=== PATIENT | male | born 1960 | race African-American/Black ===

== ENCOUNTER 2020-07-18 19:20 | Inpatient (IN) | payer OTHER ==
[~2020-07-18] VITALS: Ht 185.4 cm; Wt 77.1 kg
[~2020-07-18 19:20] MED LIST: ASPI-1079 PO; ATOR10TA PO; METO25TA6 PO
[2020-07-18] MEDS ORDERED: IPRATROPIUM BROMIDE (0.02%) 0.5MG/2.5ML NEB HHN STA (19:25)
[2020-07-18] MEDS ORDERED: ALBUTEROL (0.083%) 2.5MG/3ML NEB HHN STA (19:25)
[2020-07-18] MEDS ORDERED: METHYLPREDNISOLONE SOD SUCC 125 MG/2 ML VIAL IV STA (19:25)
[2020-07-18] MEDS ORDERED: SODIUM CHLORIDE 0.9% 1,000 ML IV ONE (19:30)
[2020-07-18] MEDS ORDERED: MAGNESIUM 2 G PREMIX 50 ML IV ONE (19:30)
[2020-07-18 20:00] LABS: BASOPHILS % 0.6 % (0.0-2.0); EOSINOPHILS % 6.9 % (0.0-5.0); HEMATOCRIT. 51.1 % (42.0-52.0); HEMOGLOBIN. 16.8 g/dL (14.0-18.0); LYMPHOCYTES % 27.2 % (20.0-50.0); MEAN CORPUSCULAR HEMOGLOBIN 28.2 pg (28.0-32.0); MEAN PLATELET VOLUME 9.9 fl (7.4-10.4); MONOCYTES % 8.7 % (2.0-8.0); NEUTROPHILS % 56.6 % (40.0-76.0); PLATELET 193 x1000/uL (130-400); RED BLOOD CELL COUNT 5.94 mill/uL (4.7-6.1); RED CELL DISTRIBUTION WIDTH 14.5 % (11.6-14.6)
[2020-07-18 20:03] LABS: CHLORIDE 106 mEq/L (98-107)
[2020-07-18 20:53] LABS: CLARITY URINE CLEAR (CLEAR); COLOR URINE YELLOW (YELLOW); KETONES URINE NEGATIVE (NEGATIVE); LEUKOCYTE ESTERASE URINE NEGATIVE (NEGATIVE); NITRITE URINE NEGATIVE (NEGATIVE); OCCULT BLOOD URINE 1+ (NEGATIVE); PROTEIN URINE 4+ (NEGATIVE); SPECIFIC GRAVITY URINE 1.016 (1.005-1.030); UROBILINOGEN URINE 0.2 E.U./dL (0.2-1.0)
[2020-07-18 21:05] LABS: BG BASE EXCESS -2.4 mmol/L (-2.0-2.0); BG CARBOXYHEMOGLOBIN 0.3 % (0.5-1.5); BG DEOXYHEMOGLOBIN 0.3 % (0.0-5.0); BG FRACTION INSPIRED OXYGEN 100; BG HCO3 ACT 24.4 mmol/L (22.0-26.0); BG METHEMOGLOBIN 0.5 % (0.0-1.5); BG OXYGEN SATURATION 99.7 % (92.0-98.5); BG OXYHEMOGLOBIN 98.9 % (94.0-97.0); BG PCO2 49.4 mmHg (35.0-45.0); BG PH 7.311 (7.350-7.450); BG PO2 566.4 mmHg (75.0-100.0); BG SAMPLE SITE RIGHT RADIAL; BG TOTAL HEMOGLOBIN 15.7 g/dL (12.0-18.0); BG VENT MODE MASK - BIPAP
[2020-07-18 21:06] LABS: *AMPHETAMINES SCREEN URINE NEGATIVE (NEGATIVE); *BARBITURATES SCREEN URINE NEGATIVE (NEGATIVE); *BENZODIAZEPINES SCREEN URINE NEGATIVE (NEGATIVE); *COCAINE SCREEN URINE NEGATIVE (NEGATIVE); METHADONE URINE SCREEN NEGATIVE (NEGATIVE); OPIATES URINE SCREEN NEGATIVE (NEGATIVE)
[2020-07-18 21:07] LABS: CANNABINOID URINE SCREEN NEGATIVE (NEGATIVE); PHENCYCLIDINE URINE SCREEN NEGATIVE (NEGATIVE)
[2020-07-19] VITALS (16 sets, daily range): BP systolic 134–152; BP diastolic 87–98
[2020-07-19] MEDS ORDERED: AMLO2.5T45 MT (04:35)
[2020-07-19] MEDS ORDERED: ACETAMINOPHEN 325MG TABLET PO PRN (08:00)
[2020-07-19] MEDS ORDERED: DOCUSATE SODIUM 100MG CAPSULE PO PRN (08:00)
[2020-07-19] MEDS ORDERED: CLONIDINE 0.1MG TABLET PO PRN (08:00)
[2020-07-19] MEDS ORDERED: MAGNESIUM/ALUMINUM HYDROXIDE/SIMETHICONE 30ML UDC PO PRN (08:00)
[2020-07-19] MEDS ORDERED: IPRATROPIUM/ALBUTEROL 0.5-3(2.5)MG/3ML NEB HHN PRN (08:00)
[2020-07-19] MEDS ORDERED: MORPHINE SULFATE 2 MG/ML CPJ (NOT FOR IM USE) IV PRN (08:00)
[2020-07-19] MEDS ORDERED: LORAZEPAM 2MG/ML CPJ IV PRN (08:00)
[2020-07-19] MEDS ORDERED: ONDANSETRON HCL 4MG/2ML INJ IV PRN (08:00)
[2020-07-19] MEDS ORDERED: HYDRALAZINE 20MG/ML VIAL IV PRN (08:00)
[2020-07-19] MEDS ORDERED: HYDROCODONE/ACETAMINOPHEN 5/325MG TABLET PO PRN (08:00)
[2020-07-19] MEDS ORDERED: DIPHENHYDRAMINE 50MG/ML VIAL IV PRN (08:00)
[2020-07-19] MEDS ORDERED: GUAIFENESIN 200MG/10ML SUGAR FREE UDC PO PRN (08:00)
[2020-07-19] MEDS: ENOXAPARIN 40MG/0.4ML SYR SUBCUT SCH (09:53)
[2020-07-19] MEDS: METHYLPREDNISOLONE SOD SUCC 40 MG/ML VIAL IV SCH ×3 (09:53→21:26)
[2020-07-19] MEDS: SODIUM CHLORIDE 0.9% INJ 3ML FLUSH IVF SCH ×2 (14:46→21:26)
[2020-07-19 15:36] LABS: CREATINE KINASE MB FRACTION 10.3 ng/mL (0.5-3.6)
[2020-07-19] MEDS ORDERED: FLUT1DIS3 INH (18:08)
[2020-07-19] MEDS ORDERED: MONTELUKAST SODIUM 10MG TABLET PO SCH (18:30)
[2020-07-19] MEDS: LORATADINE 10MG TABLET PO SCH (18:37)
[2020-07-19] MEDS: IPRATROPIUM/ALBUTEROL 0.5-3(2.5)MG/3ML NEB HHN SCH (20:51)
[2020-07-19] MEDS: FAMOTIDINE 20MG TABLET PO SCH (21:26)
[2020-07-20] VITALS (8 sets, daily range): BP systolic 132–146; BP diastolic 81–96
[2020-07-20] MEDS: IPRATROPIUM/ALBUTEROL 0.5-3(2.5)MG/3ML NEB HHN SCH ×5 (00:53→12:18)
[2020-07-20] MEDS: METHYLPREDNISOLONE SOD SUCC 40 MG/ML VIAL IV SCH ×3 (02:57→14:16)
[2020-07-20] MEDS: SODIUM CHLORIDE 0.9% INJ 3ML FLUSH IVF SCH (05:58)
[2020-07-20 06:49] LABS: HEMATOCRIT. 45.1 % (42.0-52.0); HEMOGLOBIN. 14.7 g/dL (14.0-18.0); MEAN CORPUSCULAR HEMOGLOBIN 28.1 pg (28.0-32.0); MEAN PLATELET VOLUME 10.3 fl (7.4-10.4); PLATELET 166 x1000/uL (130-400); RED BLOOD CELL COUNT 5.25 mill/uL (4.7-6.1); RED CELL DISTRIBUTION WIDTH 14.6 % (11.6-14.6)
[2020-07-20 06:58] LABS: CHLORIDE 108 mEq/L (98-107)
[2020-07-20 07:07] LABS: CREATINE KINASE 188 IU/L (39-308)
[2020-07-20 07:10] LABS: CREATINE KINASE MB FRACTION 5.4 ng/mL (0.5-3.6)
[2020-07-20] MEDS: ENOXAPARIN 40MG/0.4ML SYR SUBCUT SCH (08:14)
[2020-07-20] MEDS: LORATADINE 10MG TABLET PO SCH (08:15)
[2020-07-20] MEDS: FAMOTIDINE 20MG TABLET PO SCH (08:15)
[2020-07-20 14:23] LABS: PLATELET ESTIMATE NORMAL
== END 2020-07-20 15:00 | disposition home or self-care (01) | DRG 189 ==
LOC: ER 19:20 → 3WST 07-19 00:13 → ENRESERV 07-19 02:19 → 3WST 07-19 03:55
PROVIDERS: ADMIT Internal Medicine; ATTEND Internal Medicine
PROC: 5A09357 Assistance with Respiratory Ventilation, Less than 24 Consecutive Hours, Continuous Positive Airway Pressure (ICD-10-PCS; principal; 2020-07-18)
DX: J96.01 Acute respiratory failure with hypoxia (principal); J45.901 Unspecified asthma with (acute) exacerbation; J96.02 Acute respiratory failure with hypercapnia; I10 Essential (primary) hypertension; D72.10 Eosinophilia, unspecified; R80.9 Proteinuria, unspecified
CPT/HCPCS: 36415; 36600; 71045; 80053; 80305; 81003; 82375; 82550; 82553; 82805; 83880; 84443; 84484; 85025; 85379; 93005; 94640; 94660; 99291; J1650; J2920; J2930; J3475; J7030

== ENCOUNTER 2024-07-12 08:47 | Emergency (ER) | payer SELFPAY ==
[~2024-07-12] VITALS: Ht 180.3 cm; Wt 71.0 kg
[~2024-07-12 08:47] MED LIST changes: +AMLO2.5T45 MT; +FLUT1DIS3 INH
[2024-07-12 09:01] VITALS: O2SAT 97
[2024-07-12] MEDS: KETOROLAC 30MG/ML VIAL IM ONE (10:20)
[2024-07-12 10:51] LABS: CLARITY URINE CLEAR (CLEAR); COLOR URINE YELLOW (YELLOW); GLUCOSE URINE NEGATIVE (NEGATIVE); KETONES URINE NEGATIVE (NEGATIVE); LEUKOCYTE ESTERASE URINE NEGATIVE (NEGATIVE); NITRITE URINE NEGATIVE (NEGATIVE); OCCULT BLOOD URINE NEGATIVE (NEGATIVE); PROTEIN URINE NEGATIVE (NEGATIVE); SPECIFIC GRAVITY URINE 1.009 (1.005-1.030); UROBILINOGEN URINE 0.2 E.U./dL (0.2-1.0)
[2024-07-12] MEDS ORDERED: IBUP-2029 MT (10:54)
[2024-07-12] MEDS ORDERED: CYCL10TA21 MT (10:54)
[2024-07-12 10:56] VITALS: BP 148/77; PULSE 83; RESP 16; TEMP 36.8; O2SAT 97
[2024-07-12] MEDS ORDERED: POLY17PO3 MT (11:12)
== END 2024-07-12 11:07 | disposition home or self-care (01) ==
LOC: ER 08:47
DX: M54.50 Low back pain, unspecified (principal); J45.909 Unspecified asthma, uncomplicated; I10 Essential (primary) hypertension; Z79.899 Other long term (current) drug therapy; Z98.890 Other specified postprocedural states; Z79.51 Long term (current) use of inhaled steroids; Z79.82 Long term (current) use of aspirin
CPT/HCPCS: 99284; 81003; 96372; J1885

== ENCOUNTER 2024-07-15 17:35 | Emergency (ER) | payer SELFPAY ==
[~2024-07-15] VITALS: Ht 180.3 cm; Wt 68.0 kg
[~2024-07-15 17:35] MED LIST changes: +CYCL10TA21 MT; +IBUP-2029 MT; +POLY17PO3 MT
[2024-07-15] MEDS ORDERED: VALA10002 MT (18:52)
[2024-07-15 18:55] VITALS: O2SAT 99
[2024-07-15 18:58] VITALS: BP 181/107; PULSE 79; RESP 16; TEMP 36.8; O2SAT 99
== END 2024-07-15 19:44 | disposition home or self-care (01) ==
LOC: ER 17:35
DX: B02.9 Zoster without complications (principal); I10 Essential (primary) hypertension; J45.909 Unspecified asthma, uncomplicated; Z79.51 Long term (current) use of inhaled steroids; Z79.624 Long term (current) use of inhibitors of nucleotide synthesis; Z79.82 Long term (current) use of aspirin; Z79.899 Other long term (current) drug therapy
CPT/HCPCS: 99283

== ENCOUNTER 2024-07-21 14:41 | Emergency (ER) | payer SELFPAY ==
[~2024-07-21] VITALS: Ht 180.3 cm; Wt 70.0 kg
[~2024-07-21 14:41] MED LIST changes: +VALA10002 MT
[2024-07-21 15:03] VITALS: BP 142/94; PULSE 86; RESP 18; TEMP 36.7; O2SAT 98
[2024-07-21] MEDS ORDERED: GABA-1180 MT (18:13)
[2024-07-21] MEDS ORDERED: VALA10002 MT (18:13)
== END 2024-07-21 19:06 | disposition home or self-care (01) ==
LOC: ER 14:41
DX: B02.9 Zoster without complications (principal); I10 Essential (primary) hypertension; J45.909 Unspecified asthma, uncomplicated; Z79.51 Long term (current) use of inhaled steroids; Z79.624 Long term (current) use of inhibitors of nucleotide synthesis; Z79.82 Long term (current) use of aspirin; Z79.899 Other long term (current) drug therapy
CPT/HCPCS: 99283

== ENCOUNTER 2024-08-13 09:02 | Emergency (ER) | payer OTHER ==
[~2024-08-13] VITALS: Ht 180.3 cm; Wt 72.6 kg
[~2024-08-13 09:02] MED LIST changes: +GABA-1180 MT
[2024-08-13 09:04] VITALS: O2SAT 100
[2024-08-13] MEDS ORDERED: BUDE6HFA INH (09:25)
[2024-08-13] MEDS ORDERED: LIDO-116 TOP (09:25)
[2024-08-13] MEDS ORDERED: KETO10TA2 MT (09:25)
[2024-08-13] MEDS ORDERED: AMLO10TA80 MT (09:25)
[2024-08-13] MEDS: KETOROLAC 30MG/ML VIAL IM ONE (09:31)
[2024-08-13 09:33] VITALS: BP 148/90; PULSE 80; RESP 16; TEMP 36.7; O2SAT 100
== END 2024-08-13 09:33 | disposition home or self-care (01) ==
LOC: ER 09:02
DX: B02.29 Other postherpetic nervous system involvement (principal); I10 Essential (primary) hypertension; J45.909 Unspecified asthma, uncomplicated; Z79.82 Long term (current) use of aspirin; Z79.624 Long term (current) use of inhibitors of nucleotide synthesis; Z79.899 Other long term (current) drug therapy; Z79.51 Long term (current) use of inhaled steroids; Z98.890 Other specified postprocedural states
CPT/HCPCS: 96372; 99283; J1885; Z7610

== ENCOUNTER 2024-08-21 14:14 | Emergency (ER) | payer OTHER ==
[~2024-08-21] VITALS: Ht 180.3 cm; Wt 70.0 kg
[~2024-08-21 14:14] MED LIST changes: +AMLO10TA80 MT; +BUDE6HFA INH; +KETO10TA2 MT; +LIDO-116 TOP
[2024-08-21 14:27] VITALS: O2SAT 97
[2024-08-21 15:41] LABS: BASOPHILS % 0.7 % (0.0-2.0); EOSINOPHILS % 2.7 % (0.0-5.0); HEMATOCRIT. 43.7 % (42.0-52.0); HEMOGLOBIN. 14.4 g/dL (14.0-18.0); LYMPHOCYTES % 32.8 % (20.0-50.0); MEAN CORPUSCULAR HEMOGLOBIN 27.8 pg (28.0-32.0); MEAN CORPUSCULAR VOLUME 84.5 fL (80.0-94.0); MEAN PLATELET VOLUME 9.7 fl (7.4-10.4); MONOCYTES % 11.2 % (2.0-8.0); NEUTROPHILS % 52.6 % (40.0-76.0); PLATELET 160 x1000/uL (130-400); RED BLOOD CELL COUNT 5.18 mill/uL (4.7-6.1); RED CELL DISTRIBUTION WIDTH 14.3 % (11.6-14.6); WHITE BLOOD COUNT 3.3 x1000/uL (4.5-11.0)
[2024-08-21 15:52] LABS: CLARITY URINE CLEAR (CLEAR); COLOR URINE YELLOW (YELLOW); GLUCOSE URINE NEGATIVE (NEGATIVE); KETONES URINE NEGATIVE (NEGATIVE); LEUKOCYTE ESTERASE URINE TRACE (NEGATIVE); NITRITE URINE NEGATIVE (NEGATIVE); OCCULT BLOOD URINE NEGATIVE (NEGATIVE); PH URINE 6.5 (4.5-8.0); PROTEIN URINE NEGATIVE (NEGATIVE)
[2024-08-21 15:55] LABS: CHLORIDE 105 mEq/L (98-107)
[2024-08-21 15:56] LABS: CARBON DIOXIDE 29 mEq/L (21-32); POTASSIUM 3.1 mEq/L (3.5-5.1); SODIUM 141 mEq/L (136-145)
[2024-08-21 15:57] LABS: CALCIUM 9.8 mg/dL (8.7-10.4)
[2024-08-21 16:01] LABS: TROPONIN I HIGH SENSITIVITY 5 ng/L (3.0-53)
[2024-08-21 16:02] LABS: GLUCOSE 120 mg/dL (70-105); UREA NITROGEN BLOOD 12 mg/dL (9-23)
[2024-08-21 16:20] LABS: BACTERIA URINE NONE SEEN; RBC URINE NONE SEEN /hpf (0-2); SQUAMOUS EPITHELIAL CELL URINE NONE SEEN /lpf (RARE/1+); YEAST URINE NONE SEEN
[2024-08-21 16:50] VITALS: BP 151/89; PULSE 84; RESP 14; TEMP 36.5; O2SAT 98
[2024-08-21] MEDS: MECLIZINE 12.5MG TABLET PO ONE (17:04)
== END 2024-08-21 17:09 | disposition home or self-care (01) ==
LOC: ER 14:14
DX: R55 Syncope and collapse (principal); J45.909 Unspecified asthma, uncomplicated; I10 Essential (primary) hypertension; Z79.899 Other long term (current) drug therapy; Z79.82 Long term (current) use of aspirin
CPT/HCPCS: 99285; 71045; 80048; 81003; 85025; 84484; 36415; 93005; J8597